=== PATIENT | female | born 1995 | race Caucasian/White ===

== ENCOUNTER 2019-04-20 12:17 | Emergency (ER) | payer SELFPAY ==
[~2019-04-20] VITALS: Ht 163 cm; Wt 90.9 kg
[2019-04-20 12:29] VITALS: BP 133/67; PULSE 79; TEMP 97.8
== END 2019-04-20 18:00 ==
LOC: COL.ER 12:17
DX: R05 Cough (principal); R06.00 Dyspnea, unspecified